=== PATIENT | male | born 1960 | race Caucasian/White ===

== ENCOUNTER 2018-10-31 19:54 | Emergency (ER) | payer MEDICAID ==
[2018-10-31 20:07] VITALS: RESP 18
--- NOTE | 2018-10-31 20:55 | XR ---
EXAMINATION TYPE: XR hand complete RT DATE OF EXAM: 10/31/2018 COMPARISON: NONE HISTORY: Laceration TECHNIQUE: 3 views FINDINGS: There is some narrowing and spurring at the second MP joint. There is spurring at the first carpometacarpal joint. I see no fracture nor dislocation. There are no erosions. There is no sign of a foreign body. IMPRESSION: Osteoarthritis. No fracture seen.
[2018-10-31] MEDS ORDERED: CEPHALEXIN 500MG STARTER PACK 4 CAP BTL PO STA (21:53)
--- NOTE | 2018-10-31 21:53 | ED ---
General Adult HPI - General Chief complaint: Wound/Laceration Stated complaint: Hand laceration Source: patient, RN notes reviewed Mode of arrival: ambulatory Limitations: no limitations - History of Present Illness Initial comments: 58-year-old male with a past medical history of GERD, hyperlipidemia, hypertension presents to the emergency department for a chief complaint of laceration occurring about 2 hours prior to arrival. Patient states he lacerated his hand while using a stick to akiko an opossum. Patient denies any bites or scratches or contact with the opossum. Patient states his tetanus is up-to-date. He denies any other injuries. He denies any difficulty or pain moving the fingers. Patient has no other complaints at this time including shortness of breath, chest pain, abdominal pain, nausea or vomiting, headache, or visual changes. - Related Data Home Medications Medication Instructions Recorded Confirmed Clindamycin [Cleocin] 150 mg PO Q6H 04/14/14 04/14/14 Omeprazole [PriLOSEC] 20 mg PO [id number] 04/14/14 04/14/14 Previous Rx's Medication Instructions Recorded Cephalexin [Keflex] 500 mg PO Q8H 7 Days cap 10/31/18 Allergies Allergy/AdvReac Type Severity Reaction Status Date / Time Sulfa (Sulfonamide Allergy Rash/Hives Verified 10/31/18 20:07 Antibiotics) Review of Systems ROS Statement: Those systems with pertinent positive or pertinent negative responses have been documented in the HPI. ROS Other: All systems not noted in ROS Statement are negative. Past Medical History Past Medical History: GERD/Reflux, Hyperlipidemia, Hypertension History of Any Multi-Drug Resistant Organisms: None Reported Past Surgical History: Cholecystectomy Past Psychological History: No Psychological Hx Reported Smoking Status: Never smoker Past Alcohol Use History: None Reported Past Drug Use History: None Reported General Exam Limitations: no limitations General appearance: alert, in no apparent distress Head exam: Present: atraumatic, normocephalic, normal inspection Eye exam: Present: normal appearance, PERRL, EOMI. Absent: scleral icterus, conjunctival injection, periorbital swelling ENT exam: Present: normal exam, mucous membranes moist Neck exam: Present: normal inspection, full ROM. Absent: tenderness, meningismus, lymphadenopathy Respiratory exam: Present: normal lung sounds bilaterally. Absent: respiratory distress, wheezes, rales, rhonchi, stridor Cardiovascular Exam: Present: regular rate, normal rhythm, normal heart sounds. Absent: systolic murmur, diastolic murmur, rubs, gallop, clicks Extremities exam: Present: full ROM (Full range of motion of the right hand including the second and third MCP joint), normal capillary refill (Happily refill less than 2 seconds in the right upper extremity and radial pulse 2+), other (Patient has a 4 cm flap-like laceration on the palmar aspect of the second and third metacarpal heads). Absent: joint swelling (No significant edema, erythema, ecchymosis. No spurting redness or signs of infection.) Neurological exam: Present: alert, oriented X3, CN II-XII intact Psychiatric exam: Present: normal affect, normal mood Course Vital Signs 10/31/18 20:05 Temperature 98.3 F Pulse Rate 87 Respiratory 18 Rate Blood Pressure 138/94 O2 Sat by Pulse 98 Oximetry Procedures - Laceration Laceration #1 Consent Obtained: verbal consent Indication: laceration Site: hand Size (cm): 4 Description: flap Depth: simple, single layer Anesthetic Used: lidocaine 1% Anesthesia Technique: local infiltration Amount (mls): 5 Pre-repair: wound explored, irrigated extensively (With pressure saline irrigation) Type of Sutures: other (Ethilon) Size of Sutures: 5-0 Number of Sutures: 8 Technique: simple, interrupted Patient Tolerated Procedure: well, no complications Medical Decision Making - Medical Decision Making 58-year-old male presents to the emergency department for a chief complaint of laceration to the palmar aspect of the right hand. Patient states this occurred on a stick. Vitals are stable. On exam patient is a 4 cm flap-like laceration over the second and third palmar aspect metacarpal heads of the right hand. He has full range of motion of the second and third digits as well as the rest of the right upper extremity. Sensation is intact. Neurovascular intact. X-ray of the right hand shows osteoarthritis without any sign of foreign body or fracture. Wound was irrigated extensively with saline pressure irrigation. Tetanus is up-to-date as of 4 years ago. Wound was then sutured with 8 simple interrupted sutures. I did discuss the patient that because this is a flap there is decreased blood flow and patient will have to monitor the healing progress and follow-up with his primary care provider. 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 Patient will be given 7 days of Keflex. However I did discuss with him to return immediately if he notices any signs of infection including pain with movement of the fingers which could be an infection of the tendon. Discussed keeping the area clean and returning in 7- 10 days to have sutures removed. Disposition Clinical Impression: Laceration Disposition: HOME SELF-CARE Condition: Good Instructions: Care For Your Stitches (ED), Laceration (ED) Additional Instructions: Take Motrin or Tylenol for pain. Rest ice and elevate the right hand. Monitor for signs of infection such as spreading or streaking redness, drainage, fever, or pain moving the fingers and return if these occur. Please follow up with primary care in 1-2 days. Please return to the emergency department if you have any worsening symptoms. Otherwise return in 7-10 days to have sutures removed. Follow up with primary care in 1-2 days. Prescriptions: Cephalexin [Keflex] 500 mg PO Q8H 7 Days cap Is patient prescribed a controlled substance at d/c from ED?: No Referrals: Pattie Snyder MD [Primary Care Provider] - 1-2 days Time of Disposition: 21:51
[2018-10-31 22:04] VITALS: BP 139/86; PULSE 74; TEMP 97.4
== END 2018-10-31 22:02 | disposition home or self-care (01) ==
LOC: EC 19:54
DX: S61.411A Laceration without foreign body of right hand, initial encounter (principal); K21.9 Gastro-esophageal reflux disease without esophagitis; Z79.899 Other long term (current) drug therapy; Z88.2 Allergy status to sulfonamides; W45.8XXA Other foreign body or object entering through skin, initial encounter; Y92.89 Other specified places as the place of occurrence of the external cause
CPT/HCPCS: 12002; 99283

== ENCOUNTER → 2019-11-21 | Outpatient (CLI) | payer MEDICAID ==
--- NOTE | 2019-11-21 12:03 | US ---
EXAMINATION TYPE: US pelvic complete DATE OF EXAM: 11/21/2019 COMPARISON: NONE CLINICAL HISTORY: K40.90 Inguinal Hernia Left Side. Male pelvis; feels occasional bulge medial left i nguinal area. Bladder US: bilateral ureteral jets are seen; bladder is not fully distended and prominent prostate ( abnormal volume = 56.8ml as is greater than 30.0ml) is noted inferiorly. Patient was unable to void, thus bladder was still distended after attempt to void. Left inguinal US: bowel is noted at patient's area of concern at medial inguinal bulge and is noted moving superior and inferior with Valsalva Maneuver, and retracts superiorly in Neutral position, sug gestive of hernia and noted in Sagittal and Transverse views. IMPRESSION: Findings compatible with left inguinal hernia, correlate. Prostate enlargement, correlate for bladder outlet obstruction.
--- NOTE | 2019-11-21 12:06 | US ---
EXAMINATION TYPE: US abdomen complete DATE OF EXAM: 11/21/2019 COMPARISON: US CLINICAL HISTORY: K40.90 Inguinal Hernia Left Side; gallbladder removed EXAM MEASUREMENTS: Liver Length: 16.7 cm Gallbladder Wall: surgically removed CBD: 00.4 cm Spleen: 10.1 cm Right Kidney: 11.9 x 7.0 x 5.0 cm Left Kidney: 12.4 x 7.1 x 6.9 cm Pancreas: hyperechoic and limitedly seen due to overlying bowel gas Liver: wnl Gallbladder: surgically absent Evidence for sonographic Gaston's sign: no CBD: wnl Spleen: wnl Right Kidney: No hydronephrosis or masses seen Left Kidney: mild hydronephrosis with possible parapelvic cyst = 1.9 x 2.0 x 2.0cm Upper IVC: wnl Abd Aorta: upper aorta is gassed out; size is wnl; intimal wall thickening is noted distally There is no ascites. Kidneys show normal cortical medullary differentiation. IMPRESSION: There is mild left hydronephrosis. Postop changes.
== END | disposition home or self-care (01) ==
LOC: RADUSWWP 10:03
PROVIDERS: ATTEND Family Medicine
DX: N13.30 Unspecified hydronephrosis (principal); N40.0 Benign prostatic hyperplasia without lower urinary tract symptoms; Z98.890 Other specified postprocedural states
CPT/HCPCS: 76700; 76857